=== PATIENT | male | born 1990 | race Caucasian/White ===

== ENCOUNTER 2019-09-25 21:33 | Emergency (ER) | payer SELFPAY ==
[~2019-09-25] VITALS: Ht 182.9 cm; Wt 129.2 kg
--- NOTE | 2019-09-25 22:00 | NUR ---
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
--- NOTE | 2019-09-25 22:04 | NUR ---
PT IN [facility]N IN [facility]; DR MORENO AT . PT EDUCATED ON ER PROCESS AND POC AND VERBALIZES UNDERSTANDING. CALL LIGHT IS WITHIN REACH AT THIS TIME.
--- NOTE | 2019-09-25 22:19 | NUR ---
PT TO IMAGING VIA [facility] AT THIS TIME.
--- NOTE | 2019-09-25 22:37 | NUR ---
PT ATTACHED TO ALL VS AND CARDIAC MONITORS AT THIS TIME. VSS. LAB AT . PT DENIES ANY NEEDS AND RESTING COMFORTABLY IN [facility] WITH CALL LIGHT WITHIN REACH.
[2019-09-25 22:45] LABS: BASOPHILS # (AUTO) 0.14 x10^3/uL (0-0.1); BASOPHILS % (AUTO) 2 % (0-1); EOSINOPHILS # (AUTO) 0.07 x10^3/uL (0-0.4); EOSINOPHILS % (AUTO) 1 % (1-7); LYMPHOCYTES # (AUTO) 1.89 x10^3/uL (1-3.4); LYMPHOCYTES % (AUTO) 21 % (22-44); MD NO; MEAN CORPUSCULAR HEMOGLOBIN 29.4 pg (27.5-34.5); MEAN CORPUSCULAR HGB CONC 33.6 g/dL (33.2-36.2); MEAN CORPUSCULAR VOLUME 87.6 fL (81-97); MEAN PLATELET VOLUME 8.6 fL (7.4-10.4); MONOCYTES # (AUTO) 0.57 x10^3/uL (0.2-0.8); MONOCYTES % (AUTO) 6 % (2-9); NEUTROPHILS # (AUTO) 6.28 x10^3/uL (1.8-6.8); NEUTROPHILS % (AUTO) 70 % (42-75); PLATELET COUNT 225 x10^3/uL (130-400); RED BLOOD COUNT 5.49 x10^6/uL (4.38-5.82); RED CELL DISTRIBUTION WIDTH 12.4 % (9.4-14.8)
[2019-09-25 22:54] LABS: ALBUMIN 4.2 g/dL (3.4-5.0); ANION GAP 5 mmol/L (5-15); CHLORIDE 110 mmol/L (98-107); CREATININE 1.22 mg/dL (0.7-1.3)
[2019-09-25 22:58] LABS: TROPONIN I < 0.015 ng/mL (0.000-0.045)
--- NOTE | 2019-09-25 23:49 | NUR ---
PT D/C WITH D/C SUMMARY AND SCRIPTS. ALL QUESTIONS ANSWERED. PT AMBULATES TO REGISTRATION DESK WITH STEADY GAIT FOR D/C HOME. PT VSS AND UPDATED IN EMR PRIOR TO D/C. PT DENIES ANY OTHER NEEDS AT THIS TIME.
--- NOTE | 2019-09-25 23:58 | NUR ---
PT D/C WITH D/C SUMMARY AND SCRIPTS. ALL QUESTIONS ANSWERED. PT AMBULATES TO REGISTRATION DESK WITH STEADY GAIT FOR D/C HOME AND DENIES ANY OTHER NEEDS PERTAINING TO THIS VISIT.
[2019-09-25 23:59] VITALS: BP 128/78
== END 2019-09-26 00:01 ==
LOC: ED 22:00
DX: R55 Syncope and collapse (principal); R42 Dizziness and giddiness; M25.511 Pain in right shoulder; R07.9 Chest pain, unspecified; I45.10 Unspecified right bundle-branch block; I44.4 Left anterior fascicular block; R00.0 Tachycardia, unspecified; Z87.891 Personal history of nicotine dependence
CPT/HCPCS: 36415; 71045; 80048; 82040; 84443; 84484; 85025; 85379; 93005; 99285